=== PATIENT | male | born 1980 | race Caucasian/White ===

== ENCOUNTER 2019-10-23 13:26 | Emergency (ER) | payer OTHER ==
[~2019-10-23] VITALS: Ht 167.6 cm; Wt 102.8 kg
--- NOTE | 2019-10-23 13:35 | NUR ---
Pt denies cp, sob, n/v/d, trauma, syncope, or diaphoresis.
[2019-10-23 13:36] VITALS: BP 123/81
== END 2019-10-23 14:33 | disposition home or self-care (01) ==
LOC: ED 14:00
DX: G89.29 Other chronic pain (principal); M75.31 Calcific tendinitis of right shoulder; X50.1XXA Overexertion from prolonged static or awkward postures, initial encounter; Y93.89 Activity, other specified; Y92.69 Other specified industrial and construction area as the place of occurrence of the external cause; Y99.0 Civilian activity done for income or pay
CPT/HCPCS: 99283